=== PATIENT | male | born 1945 | race Caucasian/White ===

== ENCOUNTER 2020-09-29 05:26 | Day surgery (SDC) | payer MEDICARE, BC ==
[~2020-09-29] VITALS: Ht 172.7 cm; Wt 77.1 kg
[~2020-09-29 05:26] MED LIST: BAYER CHEWABLE81 MG PO; PAXIL20 MG PO; PROSCAR5 MG PO; ZETIA10 MG PO; ZOCOR10 MG PO
[2020-09-29 06:16] LABS: SARS-CoV-2 ANTIGEN NEGATIVE- SARS-COV-2 (NEGATIVE)
[2020-09-29 06:37] VITALS: BP 128/74; Ht 172.7 cm; Wt 77.1 kg
[2020-09-29 06:42] LABS: HEMATOCRIT 43.2 % (42.0-54.0); HEMOGLOBIN 14.7 g/dL (13.5-17.5); MCH 32.7 pg (26.0-34.0); MEAN PLATELET VOLUME 11.1 fL (7.4-10.4); RBC 4.5 10x6/uL (4.20-6.10); RDW 12.2 % (11.5-14.5); WBC 5.1 10x3/uL (4.8-10.8)
[2020-09-29] MEDS ORDERED: HYDROCODON-ACE1 EA10 PO (06:59)
--- NOTE | 2020-09-29 10:17 | NUR ---
DISCHARGED VIA W/C, ACCOMPANIED BY SN SHANICE, TO [facility] WITH SPOUSE DRIVING. ALL BELONGINGS WITH PT/SPOUSE.
--- NOTE | 2020-09-29 12:32 | OP ---
PATIENT NAME: IQ BUCIO MEDICAL RECORD: [id number] :44 LOCATION:[facility] ADMISSION DATE: SURGEON: RAHEEL SHEIKH DO DATE OF OPERATION: 09/29/2020 PROCEDURE PERFORMED: Dupuytren's contracture release on the right hand. PREOPERATIVE DIAGNOSIS: Dupuytren's contracture, right hand and ring finger. POSTOPERATIVE DIAGNOSIS: Dupuytren's contracture, right hand and ring finger. INDICATIONS: Mr. 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 I told him we could release it, but he would be at high risk for damage to the digital nerves, especially in the ring finger, recurrence, pain, need for further surgery, infection, bleeding, and he signed the consent. SURGEON: Raheel Sheikh MD DESCRIPTION OF PROCEDURE: The patient was taken to the operative suite, laid in supine position, given general anesthetic and LMA was placed. The patient was given 2 grams of Ancef preoperatively. Right upper extremity was then prepped and draped in sterile fashion. A timeout was performed, everyone was in agreeance with the correct side, site, patient and procedure. I then exsanguinated the right upper extremity with an Esmarch, tourniquet was inflated to 250 mmHg, it was up for 36 minutes. I then made a Z type incision along the palm up into the ring finger just over the proximal phalanx and very carefully dissected out the fibrous tissue, the contracture and removed it from the palm and then went up into the ring finger. It was all around the digital nerve of the ring finger. I did my best to dissect it out around the nerve. The tourniquet was then let down and any bleeding was coagulated with a bipolar. We then irrigated. Silva Miranda, certified surgical program support assistant then closed the skin with 4-0 nylon in a simple fashion. He was dressed with a soft dressing, awakened and taken to recovery in stable condition. BLOOD LOSS: Minimal. COMPLICATIONS: None. TRANSINT:[id number] Voice Confirmation ID: [id number] DOCUMENT ID: [id number] RAHEEL SHEIKH DO at 1232 CC: [id number] DICTATION DATE: 09/29/20 0819 [employer]: 09/29/20 1218 [facility] [place] 09/29/20 [place] [id number] [place] [address]
== END 2020-09-29 10:17 | disposition home or self-care (01) ==
LOC: D.OPS 05:26
PROVIDERS: Anesthesiology; ATTEND Orthopaedic Surgery
DX: M72.0 Palmar fascial fibromatosis [Dupuytren] (principal)